=== PATIENT | female | born 1995 | race Caucasian/White ===

== ENCOUNTER 2023-05-17 14:06 | Emergency (ER) | payer OTHER ==
[~2023-05-17] VITALS: Ht 157.5 cm; Wt 72.1 kg
[2023-05-17 14:11] VITALS: BP 102/79; PULSE 77; RESP 18; TEMP 97.8; O2SAT 99
[2023-05-17] MEDS ORDERED: CYCL-711 PO (16:21)
[2023-05-17] MEDS ORDERED: IBUP-2213 PO (16:21)
[2023-05-17] MEDS: IBUPROFEN 600 MG TAB PO ONE (16:36)
== END 2023-05-17 16:37 | disposition home or self-care (01) ==
LOC: MED 14:06
DX: S16.1XXA Strain of muscle, fascia and tendon at neck level, initial encounter (principal); V49.88XA Car occupant (driver) (passenger) injured in other specified transport accidents, initial encounter; Y93.89 Activity, other specified; Y92.89 Other specified places as the place of occurrence of the external cause; Y99.8 Other external cause status
CPT/HCPCS: 81025; 99283